=== PATIENT | female | born 1970 | race Caucasian/White ===

== ENCOUNTER 2016-07-18 20:03 | Inpatient (IN) | payer MEDICARE, OTHER ==
--- NOTE | ~2016-07-18 | CN ---
Consultation Report [facility] [address] [place]. [address] NAME: ANA EDWARDS : 72 STATUS : ADM José Miguel PAT#: [id number] AGE: 45 ADM/REG DATE : 07/18/16 MR#: [id number] REPORT SERV DATE: 07/20/16 DICTATED BY: LACI CHEN DATE: 07/20/16 REPORT STATUS : Draft TRANSCRIBED BY: MODL DATE: 07/20/16 NEPHROLOGY CONSULT DATE OF CONSULTATION: 07/20/2016 REASON FOR CONSULT: Advanced chronic kidney disease in patient who has a fistula. HISTORY OF PRESENT ILLNESS: Ms Edwards is a 45-year-old white female, who follows in the office of [facility] with Dr. Aaron Vazquez. She has a left forearm AV fistula in place, but has never been on dialysis. She states that she was seen in the office last week and has a GFR around 10 mL/minute. I am awaiting records to be sent over at the time of this dictation. I met her at [place] July 2015 when her creatinine was 3.4 and protein creatinine was 1.45. At that time, she was hyperkalemia and her KEIRA inhibitor and NSAIDs were discontinued. She had previously been diagnosed with lupus nephritis by biopsy in [place], [place], when she was followed by Dr. Hagan of Nephrology. She is presently in remission per her report and not maintain on chronic medications. She was admitted 07/18/2016 with heme-positive stool. Hemoglobin was 9 on admission and 7.9 yesterday. She is scheduled for colonoscopy tomorrow. Creatinine is 4.8 yesterday. PAST MEDICAL HISTORY: 1. Chronic kidney disease stage 5 with GFR 10 mL/minute with a left forearm AV fistula. 2. History of lupus, presently in remission. 3. Proteinuria 1.45 g, July 2015. 4. History of craniotomy for benign tumors with chronic migraines. 5. Iron deficiency anemia on IV iron at Nephrology office. 6. Hyperlipidemia. 7. Chronic Coumadin for DVT. 8. Normal cardiac cath September 2015 per the patient report. FAMILY HISTORY: Noncontributory to current admission. MEDICATIONS: Lipitor 20 mg daily, PhosLo with meals, Coreg 25 mg b.i.d., Requip, sodium bicarb, and Protonix drip. SOCIAL HISTORY: Single. Lives in [place], [place]. Disabled. REVIEW OF SYSTEMS: Significant for chronic nausea, but no other uremic symptoms noted. She has preserved appetite and can taste her food. PHYSICAL EXAMINATION: VITAL SIGNS: Temperature 97.4, pulse 78, respirations 14, blood pressure 153/71, 100% saturation on room air. GENERAL: She is a middle-aged appearing white female. Awake, alert, oriented, and Consultation Report [address] [place]. [address] NAME: ANA EDWARDS : 72 STATUS : ADM José Miguel PAT#: [id number] AGE: 45 ADM/REG DATE : 07/18/16 MR#: [id number] REPORT SERV DATE: 07/20/16 DICTATED BY: LACI CHEN DATE: 07/20/16 REPORT STATUS : Draft TRANSCRIBED BY: ROSIE DATE: 07/20/16 cooperative with the exam. Excellent historian. HEENT: Sclerae without icterus. Conjunctivae not injected. Oropharynx is clear. Conjugate gaze. No JVD. LUNGS: She has bilateral rhonchi without dyspnea or tachypnea. HEART: Regular rate and rhythm. No rub. ABDOMEN: Obese, soft, nontender, nondistended. EXTREMITIES: She has 1+ pitting bilateral lower extremity edema. SKIN: Shows no rash. She has a tattoo on her right arm. Left forearm AV fistula. Palpable thrill. Audible bruit. NEURO: Grossly nonfocal. MUSCULOSKELETAL: Shows no active tenosynovitis or gout. PSYCH: Mood and affect are appropriate. : 2000 mL of urine output in the last 24 hours. LAB: From 07/19/2016, white count 3400, hemoglobin 7.9, platelets 107,000. INR 1.8. Sodium 146, potassium 4.1, bicarb 24, BUN 50, creatinine 4.8, GFR 10 mL/minute. Phosphorus 4.2. Troponin normal. Calcium 7.5, magnesium 1.9. Chest x-ray, without edema. CT head without acute change. Urinalysis showed no hematuria with significant proteinuria. ASSESSMENT AND PLAN: Ms Edwards has stage 5 chronic kidney disease with a left forearm arteriovenous fistula in place, but not on dialysis, heme-positive anemia, proteinuria, lupus, iron deficiency anemia, and chronic Coumadin with previous DVT. Renal function appears to be stable and near baseline. She does have nausea, but declines initiation of chronic dialysis at this time. We will follow closely with you during our hospital stay. She will have colonoscopy tomorrow. We will protect left arm from lab checks, blood pressure checks, and venipuncture. Should renal function worsen, would have a low threshold for initiation of chronic dialysis during this admission. NC/MODL Laci Chen M.D. / [id number] CC: Kendal Real William Andrew Brant Holt, M.D.
--- NOTE | ~2016-07-18 | CN ---
Consultation Report [facility] [address] [place]. [address] NAME: ANA EDWARDS : 72 STATUS : ADM José Miguel PAT#: [id number] AGE: 45 ADM/REG DATE : 07/18/16 MR#: [id number] REPORT SERV DATE: 07/20/16 DICTATED BY: DARINEL BRADLEY DATE: 07/19/16 REPORT STATUS : Draft TRANSCRIBED BY: ROSIE DATE: 07/19/16 DATE OF CONSULTATION: 07/19/2016 REFERRING PHYSICIAN: Dr. Forbes. CHIEF COMPLAINT: Blurry vision, right eye. REASON FOR CONSULTATION: Chest pain. SOURCE: Patient chart. HISTORY OF PRESENT ILLNESS: Ms. Edwards is a very pleasant 45-year-old white woman with lupus and stage 5 chronic kidney disease, not yet on dialysis, who was in her usual state of health until five days ago when she had an episode of dizziness. Yesterday, she had an episode of chest pain, described as dull, substernal heartburn, without any radiation, up to 4/10 in severity, lasting about a minute while she was sitting in her car. She did not have any associated nausea, vomiting, dyspnea, or diaphoresis. She never had anything like that before. She also had cloudy vision in her right eye. She came to [facility] and was admitted for further care. She reports that her vision has improved. She has not had any further episodes of chest pain. No abdominal pain, diarrhea, constipation, or GI blood loss. REVIEW OF SYSTEMS: All other systems are negative. ALLERGIES: MORPHINE. MEDICATIONS AT HOME: Included atorvastatin, calcium, carvedilol, iron, hydrochlorothiazide, sublingual nitroglycerin p.r.n., ondansetron, Requip, sodium bicarbonate, and warfarin. CARDIAC RISK FACTORS: Hypertension, cholesterol, and former tobacco. Denies diabetes or family history. SOCIAL HISTORY: The patient lives in [place]. She is . She has one living child who is alive and well. She has had nine miscarriages and two live babies, who . She is currently on disability. FAMILY HISTORY: Father has congestive heart failure in his 60s. Grandmother of congestive heart failure in her 80s. PAST MEDICAL HISTORY: Significant for lupus and stage 5 chronic kidney disease, not yet on dialysis. She has had five surgeries for fistula placement in left arm. She has a e commerce web developer at [facility] and what sounds like cardiac catheterization last year, which did not reveal any significant coronary artery disease according to the patient. She does have a narrowed heart valve. She had DVT in her lower extremities and is on blood thinners. She Consultation Report [facility] [id number] [place]. [address] NAME: ANA EDWARDS : 72 STATUS : ADM José Miguel PAT#: [id number] AGE: 45 ADM/REG DATE : 07/18/16 MR#: [id number] REPORT SERV DATE: 07/20/16 DICTATED BY: DARINEL BRADLEY DATE: 07/19/16 REPORT STATUS : Draft TRANSCRIBED BY: ROSIE DATE: 07/19/16 has had three C sections, nine miscarriages, and brain tumor surgery x2 for benign tumors. She has had bones in her wrist removed. She has had knee surgery, hysterectomy, and kidney biopsy more than once. PHYSICAL EXAMINATION: GENERAL: She is a well-developed, well-nourished, middle-aged white woman, in no acute distress. VITAL SIGNS: Blood pressure 180/88, pulse 86, temperature 97.5, weight is 135 kg, and height is 5 feet 6 inches. HEENT: Sclerae anicteric. Lips without cyanosis. NECK: Carotids 2+ and symmetrical. Bilateral transmitted murmurs versus bruits. No JVD. No thyromegaly. LUNGS: Clear to auscultation. No use of accessory muscles. HEART: Regular rate and rhythm with 2/6 systolic murmur at the right upper sternal border, early to mid peaking. ABDOMEN: Positive bowel sounds. Soft and nontender. EXTREMITIES: Pulses 2+ and symmetrical. No cyanosis, clubbing, or edema. Healed surgical scars left arm fistula with palpable thrill. BACK: No CVA tenderness. MUSCULOSKELETAL: Good tone. NEUROLOGIC: Alert and oriented x3. LABORATORY EXAMINATION: EKG reveals sinus rhythm. Moderate volts for LVH, inferior myocardial infarction of undetermined age. Nonspecific lateral T-wave changes. Chest x-ray, cardiomegaly, lungs clear. Brain CT without contrast, prior neurosurgical changes left frontal region, appears stable, no acute bleed. The white count is 3.9, hemoglobin 9.0, hematocrit 28.3, MCV 89, and platelets 134,000. INR 1.9, PTT 64.7, sodium 140, potassium 4.4, chloride 108, CO2 of 28, glucose 117, BUN 53, creatinine 4.94. Troponin I of 0.02. Urinalysis: Specific gravity 1.012, pH 7.0, and protein greater than 500. Dip otherwise negative. RBCs less than 1 and WBCs 1. IMPRESSION: 1. Atypical chest pain, doubt cardiac, suspect gastrointestinal. 2. Normocytic anemia. 3. Lupus. 4. Stage 5 chronic kidney disease. 5. Murmur of aortic stenosis. Consultation Report [facility] [address] [place]. [address] NAME: ANA EDWARDS : 72 STATUS : ADM José Miguel PAT#: [id number] AGE: 45 ADM/REG DATE : 07/18/16 MR#: [id number] REPORT SERV DATE: 07/20/16 DICTATED BY: DARINEL BRADLEY DATE: 07/19/16 REPORT STATUS : Draft TRANSCRIBED BY: ROSIE DATE: 07/19/16 6. Reportedly negative cardiac catheterization in last year at [facility], records not available. 7. History of deep venous thrombosis, on anticoagulants. 8. Status post brain surgery x2 for benign tumors. 9. Cardiac risk factors including hypertension, cholesterol, and former tobacco. 10.Obesity. RECOMMENDATIONS: 1. Echocardiogram. 2. Obtain records from cardiac catheterization at [facility]. ARABELLA/ROSIE Darinel Bradley M.D. / [id number] CC: Kendal Real FNP
--- NOTE | ~2016-07-18 | CN ---
Consultation Report [facility] [address] [place]. [address] NAME: ANA EDWARDS : 72 STATUS : ADM José Miguel PAT#: [id number] AGE: 45 ADM/REG DATE : 07/18/16 MR#: [id number] REPORT SERV DATE: 07/20/16 DICTATED BY: IRMA HAMILTON DATE: 07/19/16 REPORT STATUS : Draft TRANSCRIBED BY: MODL DATE: 07/19/16 CONSULTATION NOTE DATE OF CONSULTATION: 07/19/2016 HISTORY OF PRESENT ILLNESS: This is a 45-year-old white female, I am seeing for Dr. Sukh Berry, admitted with headache, chest pain, some history of GERD. She had been taking some Goody's Powder for headache. Diagnosed with DVT in 1996 and has been on Coumadin since then, INR of 1.9. History of hypertension, lupus, chronic kidney disease, followed by Dr. Vazquez . Recently had a fistula placed in the left for pending hemodialysis. Had a benign tumor of the brain removed x2 in 1996. CT this admission shows no tumor, no acute changes. Her EKGs have been unremarkable. Her enzymes have been unremarkable. She is being followed by [facility]. Her echo is pending. SOCIAL HISTORY: Negative EtOH and nicotine. FAMILY HISTORY: Negative for colon cancer. No current GERD on Protonix only. No nausea or vomiting. No abdominal pain. No change in bowel habits. No gross bleeding. Had a positive guaiac in the ER. LABORATORY DATA: BUN is 53, creatinine is 4.94. Hemoglobin 9, that is dropped to 7.9, MCV of 80, platelets 134,000. PHYSICAL EXAMINATION: GENERAL: Well-developed, well-nourished white female, alert and oriented x3. HEENT: Anicteric. NECK: Negative. CHEST: Clear to percussion. HEART: Regular rate and rhythm. No murmur or gallop. ABDOMEN: Soft, nontender. Bowel sounds active. EXTREMITIES/NEUROLOGIC: Grossly intact. ASSESSMENT: 1. Chest pain, resolving. 2. History of gastroesophageal reflux disease, on Protonix. [facility] following. Echo is pending. 3. Headache, resolved. History of brain tumor x2 in [address] negative for acute changes this admission. 4. Lupus. 5. Chronic kidney disease. Pending hemodialysis. 6. Hypertension. 7. Deep venous thrombosis, on Coumadin. INR of 1.9. 8. Anemia. Hemoglobin dropped from 9 to 7.9. Positive guaiac stool. No gross bleeding. History of some Goody's Powder usage on Coumadin. Consultation Report [facility] [address] [place]. [address] NAME: ANA EDWARDS : 72 STATUS : ADM José Miguel PAT#: [id number] AGE: 45 ADM/REG DATE : 07/18/16 MR#: [id number] REPORT SERV DATE: 07/20/16 DICTATED BY: IRMA HAMILTON DATE: 07/19/16 REPORT STATUS : Draft TRANSCRIBED BY: ROSIE DATE: 07/19/16 SUGGESTION: 1. Coumadin is on hold. Follow up her INR. 2. Followup H and H. 3. Continue Protonix. 4. NPO after midnight for possible EGD. Dr. Fung will be back in the a.m. Thank you very much for the consultation. LLUVIA/ROSIE Irma Hamilton M.D. / [id number] CC: MD Lloyd Prince M.D.
--- NOTE | ~2016-07-18 | DS ---
Discharge Summary [facility] [address] [place]. [address] NAME: ANA EDWARDS : 72 STATUS : DIS IN PAT#: [id number] AGE: 45 ADM/REG DATE : 07/18/16 MR#: [id number] REPORT SERV DATE: 07/23/16 DICTATED BY: CANDY MCMILLAN DATE: 07/22/16 REPORT STATUS : Draft TRANSCRIBED BY: MODCirilo DATE: 07/22/16 ADMISSION DATE: 07/18/2016 DISCHARGE DATE: 07/22/2016 PRINCIPAL DIAGNOSIS: Chest pain due to aortic stenosis, due to bicuspid aortic valve. 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 HISTORY OF PRESENT ILLNESS: Please see Dr. Storm's dictation 07/18/2016. HOSPITAL COURSE: Admitted with chest pain and anemia, the patient had an echocardiogram with aortic stenosis, aortic insufficiency, there was a concern about a heavy gradient, however, this was equivocal. A WHITNEY was done which showed a bicuspid valve, moderate in severity. The patient was also found to have progression of her kidney disease, creatinine greater than 4, but not meeting criteria for dialysis at this time. It was felt that it was inevitable the next year or so. The patient would in fact require both dialysis and aortic valve replacement. The anemia was worked up. She was found to be guaiac positive, however, she was on iron supplements. Review of old records showed that her blood counts had been unchanged over the course of greater than 2 years. She had been on iron supplementation throughout that time. Iron stores remained normal, so she was not found to be deficient at any time. Ferritin had been lower than the threshold desired by the sales stock associate due to in terms of initiation of erythropoietin therapy, however, the patient had not been acutely ill at any time, which would have resulted in elevations of ferritin from being an acute phase reactant. Her iron saturation meanwhile was greater than 30%. She declined any GI work up. GI signed off. She met the maximum benefit of hospitalization by 07/22/2016, was released home, following up with Dr. Lloyd Willingham as previously scheduled, to Dr. Aaron Vazquez as scheduled. She continue her home medications including the iron supplementation, she did not need to receive it intravenously. She will follow up with Dr. Whitmore in a month and for ongoing evaluation of aortic valve. LOPEZ/ROSIE Candy Mcmillan M.D. / [id number] CC: Kendal Fleming WILLIAM ANDREW Brant Holt, M.D. Discharge Summary [address] [address] NAME: AAN EDWARDS : 72 STATUS : DIS IN PAT#: [id number] AGE: 45 ADM/REG DATE : 07/18/16 MR#: [id number] REPORT SERV DATE: 07/23/16 DICTATED BY: CANDY MCMILLAN DATE: 07/22/16 REPORT STATUS : Draft TRANSCRIBED BY: ROSIE DATE: 07/22/16 Mayur Whitmore M.D.
--- NOTE | ~2016-07-18 | TEE ---
Transesophageal Echocardiogram [facility] [address] [place]. [address] NAME: ANA EDWARDS : 72 STATUS : ADM IN [facility]#: [id number] AGE: 45 ADM/REG DATE : 07/18/16 MR#: [id number] REPORT SERV DATE: 07/22/16 DICTATED BY: LLOYD PATE DATE: 07/21/16 REPORT STATUS : Draft TRANSCRIBED BY: ROSIE DATE: 07/21/16 ECHOCARDIOGRAM INDICATION: A 45-year-old woman with aortic stenosis and aortic insufficiency. PROCEDURE: After questions were answered and consents were signed, the patient was sedated with propofol per Anesthesia. The probe was placed in the mid esophagus and images were obtained without difficulty. At the conclusion of the procedure, the probe was withdrawn. The patient was recovering in the short-stay unit. 2D INTERPRETATION: The left ventricular function is low normal with no obvious focal wall motion abnormality. The mitral valve opened adequately. No prolapse was noted. There was mild restriction of the posterior mitral valve leaflet. No obvious thrombus was noted in the left atrium or grossly in the left atrial appendage. The interatrial septum was intact. The tricuspid valve was grossly normal. Right-sided chambers grossly normal. Pulmonic valve grossly normal. No significant atherosclerotic plaquing in the descending aorta and aortic arch and no pericardial effusion was noted. The aortic valve was visualized in multiple views. The noncoronary cusp appeared to be opening reasonably. There was partial fusion of the right and the left coronary cusps, possible functionally bicuspid aortic valve. No prolapse was seen. No vegetations were noted. COLOR FLOW: Moderate aortic insufficiency is noted with trace mitral and trace tricuspid regurgitation. DOPPLER: Doppler flow velocities show a pressure half-time of 310 across the aortic valve consistent with moderate aortic insufficiency. On deep transgastric views, the aortic peak gradient was 40 with a mean gradient of 22, this may be underestimated by transesophageal echocardiography. CONCLUSION: 1. LOW NORMAL LEFT VENTRICULAR SYSTOLIC FUNCTION WITH ESTIMATED LVEF OF 50 TO 55%. 2. PROBABLE FUNCTIONAL BICUSPID VALVE WITH RESTRICTED OPENING OF THE RIGHT AND THE LEFT CORONARY CUSPS. 3. MODERATE TO SEVERE AORTIC STENOSIS BY WHITNEY BUT LOW GRADIENT SEVERE AORTIC STENOSIS NOTED BY TRANSTHORACIC ECHO. 4. MODERATE AORTIC INSUFFICIENCY. WO/ROSIE Lloyd Pate M.D., Ph.D, F.A.C.C. / [id number] Transesophageal Echocardiogram [facility] [address] [place]. [address] NAME: ANA EDWARDS : 72 STATUS : ADM IN PAT#: [id number] AGE: 45 ADM/REG DATE : 07/18/16 MR#: [id number] REPORT SERV DATE: 07/22/16 DICTATED BY: LLOYD PATE DATE: 07/21/16 REPORT STATUS : Draft TRANSCRIBED BY: MODL DATE: 07/21/16 CC: Kendal Fleming
--- NOTE | ~2016-07-18 | HP ---
History And Physical [id number] [place]. [address] NAME: ANA EDWARDS : 72 STATUS : ADM José Miguel PAT#: [id number] AGE: 45 ADM/REG DATE : 07/18/16 MR#: [id number] REPORT SERV DATE: 07/19/16 DICTATED BY: DAX DESAI DATE: 07/19/16 REPORT STATUS : Draft TRANSCRIBED BY: MODL DATE: 07/19/16 DATE OF ADMISSION: 07/18/2016 CHIEF COMPLAINT: Chest pain and pain in the right side of her forehead and temporal area. HISTORY OF PRESENT ILLNESS: This is a 45-year-old female with a history of DVT, currently on anticoagulation with warfarin, history of hypertension, chronic kidney disease stage 4, and systemic sclerosis, who presents to the emergency room at [facility], [place] with the above-mentioned complaint. History is obtained from the patient and reviewing data available on the [employer] system. According to Mrs. Edwards, she had been in her usual state of health until about three to four days ago when she started experiencing substernal chest pain. Pain stayed in that same area without any radiation, and according to her, it was waxing and waning, sometimes lasting up to a minute. There were no aggravating or relieving factors. During this time, she also had a severe headache over her right forehead and zoroastrianism area, which also comes and goes. She has been taking [id number] packets of Goody's Powder for this. That is in addition to her regular medications. She does have a history of DVT and is on anticoagulation as well. Today, her chest pain and her headache got to a point she decided to come to the emergency room to be checked out. In the emergency room, initial workup including CT scan of the brain did not reveal any acute pathology. Chest x-ray was unremarkable. EKGs showed normal sinus rhythm without any acute ST or T-wave changes. Her cardiac enzymes were within normal limits. INR was 1.9. She has chronic anemia with a hemoglobin of 9 and hematocrit of 28.3 today. However, her stool Hemoccult was positive in the ER according to the ER physician. Hospitalist Service is asked to admit her for ruling out acute coronary syndrome and evaluating her GI bleed. At the time of my evaluation, she did not have chest pain. She denied any palpitations or orthopnea. She had no cough, hemoptysis, night sweats, or weight loss. She denied any recent falls or loss of consciousness. No history of recent fevers, chills, nausea, vomiting, or diarrhea. She denied any hematemesis, hematochezia, or hematuria. No dysuria. No other history of recent travel or exposures other than those mentioned above. PAST MEDICAL HISTORY: Significant for history of deep venous thrombosis, on warfarin therapy. She has essential hypertension, chronic anemia, coronary artery disease with stent placement, and chronic kidney disease stage 4, followed by Dr. Vazquez. She also has history of systemic sclerosis and has had a brain tumor in the past, which was removed by craniotomy. SOCIAL HISTORY: She does not smoke, drink, or use recreational drugs. FAMILY HISTORY: Noncontributory. History And Physical [address] [address] NAME: ANA EDWARDS : 72 STATUS : ADM José Miguel PAT#: [id number] AGE: 45 ADM/REG DATE : 07/18/16 MR#: [id number] REPORT SERV DATE: 07/19/16 DICTATED BY: DAX DESAI DATE: 07/19/16 REPORT STATUS : Draft TRANSCRIBED BY: ROSIE DATE: 07/19/16 MEDICATIONS: Her medications at home were reviewed by me in the chart today and reordered by me. REVIEW OF SYSTEMS: As in history of present illness. All other systems were reviewed in detail and are quite unremarkable. PHYSICAL EXAMINATION: GENERAL: This is a pleasant 45-year-old, not in any acute distress at this time. HEENT: Her head appears to be atraumatic, normocephalic. Her pupils were equal, reacting to light and accommodating. She is alert, awake, oriented to time, place, and person. NECK: Supple with no jugular venous distention, lymphadenopathy, or thyromegaly. LUNGS: Clear to auscultation with no wheezes, rubs, or crackles. HEART: Heart sounds were regular with no murmurs, rubs, or gallops. ABDOMEN: Soft, nontender. Bowel sounds are present. EXTREMITIES: No cyanosis, clubbing, or edema. NEUROLOGIC: Grossly intact. No focal sensory or motor deficits. Higher functions appeared intact. She was able to move all four extremities. VITAL SIGNS: Her pulse was 84, respirations 18 a minute, she was afebrile. Her blood pressure was 162/84 upon arrival here. LABORATORY DATA: Reviewed on the [employer] system showed a sodium of 145, potassium 4.4, chloride 108, CO2 of 28, BUN was 53 with a creatinine of 4.94, and GFR was 10. Blood glucose was 117. Magnesium was 1.8 and calcium was 7.6 today. Her troponin was 0.02. CBC showed a white blood cell count of 3900. Hemoglobin was 9, hematocrit 28.3. We do not have any prior values here. Her MCV was 89.3 and platelet count was 134,000. Urinalysis was grossly unremarkable. Films of the chest x-ray were reviewed by me on the PACS today, and CT of her brain also. Chest x-ray films did not reveal any acute process. CT of the brain did not reveal any acute intracranial process. There is history of craniotomy seen. A 12- lead EKG done in emergency room was reviewed and interpreted by me. There is normal sinus rhythm at a rate of [address]ations or depressions. Again, prothrombin time and INR was 221.2 and 1.9. Stool Hemoccult was positive in the emergency room. IMPRESSION: 1. Chest pain. 2. Acute gastrointestinal bleeding. 3. Anemia. 4. Essential hypertension, uncontrolled. 5. Chronic kidney disease, stable at this time. 6. History of deep venous thrombosis, on anticoagulation. 7. Coronary artery disease with stent placement. 8. Systemic sclerosis. PLAN: We will admit the patient to the Hospitalist Service with telemetry for a 24-hour observation. Her chest pain may be due to GI reasons, but we will keep her n.p.o. for now. History And Physical [address] [place]. [address] NAME: ANA EDWARDS : 72 STATUS : ADM José Miguel PAT#: [id number] AGE: 45 ADM/REG DATE : 07/18/16 MR#: [id number] REPORT SERV DATE: 07/19/16 DICTATED BY: DAX DESAI DATE: 07/19/16 REPORT STATUS : Draft TRANSCRIBED BY: ROSIE DATE: 07/19/16 Follow serial troponins to rule out acute coronary syndrome. We will also start her on nitroglycerin paste to chest wall and try to hold off on aspirin due to her GI bleed. We will establish blood pressure controlled with intravenous hydralazine given on an as-needed basis . We will get a GI consultation in the morning as her stool Hemoccult was positive in the ER. We will hold her warfarin. She will be kept n.p.o. for this. We will also consult Nephrology for her chronic kidney disease. She has recently had a vascular shunt placed by Dr. Rutledge. She will be on SCD's for DVT prophylaxis while she is here. I have discussed the above plans with the patient, and her questions were answered. She is agreeable to the above recommendations. Hospitalist Service will be following her during her stay here. /ROSIE Dax Desai M.D. / [id number] CC: MD Lloyd Prince
[2016-07-18 20:10] LABS: BASOPHILS 0.3 %; BASOPHILS ABSOLUTE 0.01 10/3/uL (0.0-0.16); EOSINOPHILS 6.9 %; EOSINOPHILS ABSOLUTE 0.27 10/3/uL (0.0-0.53); HEMATOCRIT 28.3 % (36.0-48.0); IMMATURE GRANULOCYTES 0.5 %; IMMATURE GRANULOCYTES ABSOLUTE 0.02 10/3/uL (0.0-0.11); LYMPHOCYTES 21.2 %; LYMPHOCYTES ABSOLUTE 0.83 10/3/uL (0.67-4.30); MEAN CORPUS HGB CONC 31.8 g/dL (32.0-36.0); MEAN CORPUSCULAR HEMOGLOB 28.4 pg (26.0-34.0); MEAN CORPUSCULAR VOLUME 89.3 fL (80-100); MEAN PLATELET VOLUME 10.3 fL (9.2-13.0); MONOCYTES 6.1 %; MONOCYTES ABSOLUTE 0.24 10/3/uL (0.21-1.20); NEUTROPHILS ABSOLUTE 2.54 10/3/uL (2.02-8.40); PLATELET COUNT 134 10/3/uL (150-400); RBC DISTRIBUTION WIDTH 15.2 % (12.0-16.0); RED CELL COUNT 3.17 10/6/uL (4.0-5.6); WHITE BLOOD CELLS 3.9 10/3/uL (4.5-10.5)
[2016-07-18 20:14] LABS: MANUAL DIFF NO %
[2016-07-18 20:15] LABS: ASCORBIC ACID (UR NOT ORDER) NEG (NEG); BILIRUBIN, URINE NEGATIVE (NEG); ER URINALYSIS TAT 0 Hrs 09 Mins; KETONE, URINE NEGATIVE (NEG); LEUKOCYTE ESTERASE(NOT OR NEG (NEG); NITRITE (URINE) NEG (NEG); WBC (NOT ORDERED) (RFLEX) 1 (0-5)
[2016-07-18 20:22] LABS: INTERNATIONAL NORMAL RATI 1.9 UNITS (-); PARTIAL THROMBO TIME 64.7 SEC (22.5-37.2); PROTIME (NOT ORD) 21.2 SEC (12.0-14.5)
[2016-07-18 20:28] LABS: BUN (BLOOD UREA NITROGEN) 53 MG/DL (6-23); CALCIUM, SERUM 7.6 MG/DL (8.5-10.4); CHEST PAIN PROFILE TAT 0 Hrs 22 Mins; CHLORIDE, SERUM 108 MMOL/L (96-112); CO2 (CARBON DIOXIDE) 28 MMOL/L (24-34); CREATININE 4.94 MG/DL (0.55-1.02); GFR AFRICAN AMERICAN 12 ML/MIN (>=60); GFR NON AFRICAN AMERICAN 10 ML/MIN (>=60); GLUCOSE, SERUM 117 MG/DL (60-99); POTASSIUM, SERUM 4.4 MMOL/L (3.5-5.3); SALICYLATE 11.4 MG/DL (-); SODIUM, SERUM 145 MMOL/L (135-148); TROPONIN I 0.02 NG/ML (<0.05)
[2016-07-18] MEDS ORDERED: ZOFRAN4 PO (20:30)
[2016-07-18] MEDS ORDERED: PHOSLO PO (20:30)
[2016-07-18] MEDS ORDERED: COREG25 PO (20:31)
[2016-07-18] MEDS ORDERED: SODBICAR10 PO (20:31)
[2016-07-18] MEDS ORDERED: FERROUS SULF325 M1 PO (20:31)
[2016-07-18] MEDS ORDERED: HYDROCHLOROT25 MG PO (20:32)
[2016-07-18] MEDS ORDERED: REQUIP5 PO (20:32)
[2016-07-18] MEDS ORDERED: LIPITOR20 PO (20:32)
[2016-07-18] MEDS ORDERED: C5 PO (20:33)
[2016-07-18] MEDS ORDERED: NITROSTAT0.4 MG SL (20:33)
[2016-07-18] MEDS ORDERED: TUMSROLL PO (20:33)
[2016-07-19 09:27] LABS: BASOPHILS 0.3 %; BASOPHILS ABSOLUTE 0.01 10/3/uL (0.0-0.16); EOSINOPHILS 5.4 %; EOSINOPHILS ABSOLUTE 0.18 10/3/uL (0.0-0.53); HEMOGLOBIN 7.9 g/dL (12.0-16.0); IMMATURE GRANULOCYTES 0.3 %; IMMATURE GRANULOCYTES ABSOLUTE 0.01 10/3/uL (0.0-0.11); LYMPHOCYTES 25.9 %; LYMPHOCYTES ABSOLUTE 0.87 10/3/uL (0.67-4.30); MEAN CORPUSCULAR HEMOGLOB 28.3 pg (26.0-34.0); MEAN CORPUSCULAR VOLUME 88.5 fL (80-100); MEAN PLATELET VOLUME 10.2 fL (9.2-13.0); MONOCYTES 6.5 %; MONOCYTES ABSOLUTE 0.22 10/3/uL (0.21-1.20); NEUTROPHILS 61.6 %; NEUTROPHILS ABSOLUTE 2.07 10/3/uL (2.02-8.40); PLATELET COUNT 107 10/3/uL (150-400); RBC DISTRIBUTION WIDTH 15.2 % (12.0-16.0); RED CELL COUNT 2.79 10/6/uL (4.0-5.6); WHITE BLOOD CELLS 3.4 10/3/uL (4.5-10.5)
[2016-07-19 09:29] LABS: HEMATOCRIT 24.7 % (36.0-48.0); MANUAL DIFF NO %
[2016-07-19 09:46] LABS: BUN (BLOOD UREA NITROGEN) 50 MG/DL (6-23); CALCIUM, SERUM 7.5 MG/DL (8.5-10.4); CHLORIDE, SERUM 112 MMOL/L (96-112); CO2 (CARBON DIOXIDE) 24 MMOL/L (24-34); GFR AFRICAN AMERICAN 12 ML/MIN (>=60); GFR NON AFRICAN AMERICAN 10 ML/MIN (>=60); PHOSPHORUS, SERUM 4.2 MG/DL (2.5-4.5); POTASSIUM, SERUM 4.1 MMOL/L (3.5-5.3); SODIUM, SERUM 146 MMOL/L (135-148); TROPONIN I 0.02 NG/ML (<0.05)
[2016-07-19 09:48] LABS: GLUCOSE, SERUM 86 MG/DL (60-99)
[2016-07-19 13:17] LABS: TROPONIN I 0.02 NG/ML (<0.05)
[2016-07-19 13:18] LABS: FOLATE 17.9 NG/ML (>5.2)
[2016-07-20 06:26] LABS: INTERNATIONAL NORMAL RATI 1.8 UNITS (-); PROTIME (NOT ORD) 21.1 SEC (12.0-14.5)
[2016-07-21 06:03] LABS: BASOPHILS 0.4 %; BASOPHILS ABSOLUTE 0.01 10/3/uL (0.0-0.16); EOSINOPHILS 5.9 %; EOSINOPHILS ABSOLUTE 0.16 10/3/uL (0.0-0.53); HEMATOCRIT 24.8 % (36.0-48.0); HEMOGLOBIN 8.1 g/dL (12.0-16.0); LYMPHOCYTES 30.4 %; LYMPHOCYTES ABSOLUTE 0.82 10/3/uL (0.67-4.30); MANUAL DIFF NO %; MEAN CORPUS HGB CONC 32.7 g/dL (32.0-36.0); MEAN CORPUSCULAR HEMOGLOB 29.1 pg (26.0-34.0); MEAN CORPUSCULAR VOLUME 89.2 fL (80-100); MEAN PLATELET VOLUME 10.4 fL (9.2-13.0); MONOCYTES 8.5 %; MONOCYTES ABSOLUTE 0.23 10/3/uL (0.21-1.20); NEUTROPHILS 54.8 %; NEUTROPHILS ABSOLUTE 1.48 10/3/uL (2.02-8.40); PLATELET COUNT 115 10/3/uL (150-400); RBC DISTRIBUTION WIDTH 14.8 % (12.0-16.0); RED CELL COUNT 2.78 10/6/uL (4.0-5.6); WHITE BLOOD CELLS 2.7 10/3/uL (4.5-10.5)
[2016-07-21 06:08] LABS: INTERNATIONAL NORMAL RATI 1.7 UNITS (-); PROTIME (NOT ORD) 19.6 SEC (12.0-14.5)
[2016-07-21 06:18] LABS: ALBUMIN 2.9 G/DL (3.5-5.0); BUN (BLOOD UREA NITROGEN) 41 MG/DL (6-23); CALCIUM, SERUM 8.3 MG/DL (8.5-10.4); CHLORIDE, SERUM 110 MMOL/L (96-112); CO2 (CARBON DIOXIDE) 23 MMOL/L (24-34); CREATININE 4.73 MG/DL (0.55-1.02); GFR AFRICAN AMERICAN 12 ML/MIN (>=60); GFR NON AFRICAN AMERICAN 10 ML/MIN (>=60); GLUCOSE, SERUM 91 MG/DL (60-99); PHOSPHORUS, SERUM 4.5 MG/DL (2.5-4.5); POTASSIUM, SERUM 4.3 MMOL/L (3.5-5.3); SODIUM, SERUM 145 MMOL/L (135-148)
[2016-07-22 05:53] LABS: BASOPHILS 0.3 %; BASOPHILS ABSOLUTE 0.01 10/3/uL (0.0-0.16); EOSINOPHILS 5.5 %; EOSINOPHILS ABSOLUTE 0.16 10/3/uL (0.0-0.53); HEMATOCRIT 26.5 % (36.0-48.0); HEMOGLOBIN 8.5 g/dL (12.0-16.0); IMMATURE GRANULOCYTES 0.3 %; IMMATURE GRANULOCYTES ABSOLUTE 0.01 10/3/uL (0.0-0.11); LYMPHOCYTES 24.3 %; LYMPHOCYTES ABSOLUTE 0.71 10/3/uL (0.67-4.30); MEAN CORPUS HGB CONC 32.1 g/dL (32.0-36.0); MEAN CORPUSCULAR HEMOGLOB 29.2 pg (26.0-34.0); MEAN CORPUSCULAR VOLUME 91.1 fL (80-100); MEAN PLATELET VOLUME 10.9 fL (9.2-13.0); MONOCYTES 7.5 %; MONOCYTES ABSOLUTE 0.22 10/3/uL (0.21-1.20); NEUTROPHILS 62.1 %; NEUTROPHILS ABSOLUTE 1.81 10/3/uL (2.02-8.40); PLATELET COUNT 125 10/3/uL (150-400); RBC DISTRIBUTION WIDTH 15.2 % (12.0-16.0); RED CELL COUNT 2.91 10/6/uL (4.0-5.6); WHITE BLOOD CELLS 2.9 10/3/uL (4.5-10.5)
[2016-07-22 05:54] LABS: MANUAL DIFF NO %
[2016-07-22 05:59] LABS: INTERNATIONAL NORMAL RATI 1.2 UNITS (-)
[2016-07-22 06:02] LABS: PROTIME (NOT ORD) 15.3 SEC (12.0-14.5)
[2016-07-22] MEDS ORDERED: PRILOSEC OTC20 MG PO (10:29)
== END 2016-07-22 13:51 | disposition home or self-care (01) | DRG 307 ==
LOC: ER 20:03 → 2SO 23:54
PROVIDERS: Emergency Medicine; Internal Medicine; Internal Medicine Gastroenterology; Internal Medicine Pulmonary Disease; Registered Nurse
PROC: B246ZZ4 Ultrasonography of Right and Left Heart, Transesophageal (ICD-10-PCS; principal; 2016-07-18)
DX: Q23.1 Congenital insufficiency of aortic valve (principal); N18.4 Chronic kidney disease, stage 4 (severe); M32.14 Glomerular disease in systemic lupus erythematosus; M32.9 Systemic lupus erythematosus, unspecified; Z68.42 Body mass index [BMI] 45.0-49.9, adult; K92.1 Melena; I35.0 Nonrheumatic aortic (valve) stenosis; I12.9 Hypertensive chronic kidney disease with stage 1 through stage 4 chronic kidney disease, or unspecified chronic kidney disease; D53.9 Nutritional anemia, unspecified; I25.10 Atherosclerotic heart disease of native coronary artery without angina pectoris; E66.9 Obesity, unspecified; E78.00 Pure hypercholesterolemia, unspecified; D63.1 Anemia in chronic kidney disease; E66.01 Morbid (severe) obesity due to excess calories; D50.9 Iron deficiency anemia, unspecified; Z88.5 Allergy status to narcotic agent; Z79.01 Long term (current) use of anticoagulants; Z95.5 Presence of coronary angioplasty implant and graft; Z86.718 Personal history of other venous thrombosis and embolism; Z87.891 Personal history of nicotine dependence; Z82.49 Family history of ischemic heart disease and other diseases of the circulatory system; Z86.011 Personal history of benign neoplasm of the brain; Z98.890 Other specified postprocedural states
CPT/HCPCS: 70450; 71010; 80048; 80069; 81001; 82728; 82746; 83540; 83690; 83735; 84100; 84484; 85025; 85610; 85730; 93005; 93306; 93312; 93320; 93325; 99285; A9270-GY; C9113; G0480; J0360; J1170; J2405; J2550